=== PATIENT | male | born 1945 | race Caucasian/White ===

== ENCOUNTER → 2023-12-21 07:55 | Outpatient (REF) | payer OTHER, SELFPAY ==
[2023-12-21 08:45] LABS: NT-proBNP 2470 pg/ml
[2023-12-21 09:08] LABS: Blood Urea Nitrogen 31 mg/dl (9-20); Calcium 9.3 mg/dl (8.4-10.2); Carbon Dioxide 30 mmol/L (22-30); Chloride 100 mmol/L (98-107); Glucose 107 mg/dl (70-99); Potassium 4.6 mmol/L (3.5-5.1); Sodium 138 mmol/L (135-145); eGFR 44.38
== END ==
LOC: REG 07:55
PROVIDERS: ATTENDING PHYSICIAN Internal Medicine Cardiovascular Disease; FAMILY PHYSICIAN Family Medicine
DX: I42.9 Cardiomyopathy, unspecified (principal)
CPT/HCPCS: 36415; 80048; 83880

== ENCOUNTER → 2024-01-11 07:17 | Outpatient (REF) | payer OTHER, SELFPAY | LOC: DHCBS MAIN 07:17 | PROVIDERS: ATTENDING PHYSICIAN Internal Medicine Cardiovascular Disease; FAMILY PHYSICIAN Family Medicine | DX: I42.9 Cardiomyopathy, unspecified (principal) | CPT/HCPCS: 93306 ==

== ENCOUNTER → 2024-01-13 10:32 | Outpatient (REF) | payer OTHER, SELFPAY ==
[2024-01-13 11:39] LABS: INR 2.02; PT 23.1 Sec (11.4-14.6)
== END ==
LOC: REG 10:32
PROVIDERS: ATTENDING PHYSICIAN Internal Medicine Cardiovascular Disease; FAMILY PHYSICIAN Family Medicine
DX: I48.0 Paroxysmal atrial fibrillation (principal); I48.19 Other persistent atrial fibrillation
CPT/HCPCS: 36415; 85610

== ENCOUNTER → 2024-02-19 09:58 | Outpatient (REF) | payer OTHER, SELFPAY ==
[2024-02-19 10:45] LABS: INR 2.47; PT 26.7 Sec (11.4-14.6)
== END ==
LOC: REG 09:58
PROVIDERS: ATTENDING PHYSICIAN Internal Medicine Cardiovascular Disease; FAMILY PHYSICIAN Family Medicine
DX: I48.0 Paroxysmal atrial fibrillation (principal); G45.9 Transient cerebral ischemic attack, unspecified; I48.19 Other persistent atrial fibrillation
CPT/HCPCS: 36415; 85610

== ENCOUNTER → 2024-03-25 10:10 | Outpatient (REF) | payer OTHER, SELFPAY ==
[2024-03-25 11:54] LABS: INR 2.44; PT 26.4 Sec (11.4-14.6)
== END ==
LOC: REG 10:10
PROVIDERS: ATTENDING PHYSICIAN Internal Medicine Cardiovascular Disease
DX: I48.0 Paroxysmal atrial fibrillation (principal); G45.9 Transient cerebral ischemic attack, unspecified; I48.19 Other persistent atrial fibrillation
CPT/HCPCS: 36415; 85610

== ENCOUNTER → 2024-05-02 14:25 | Outpatient (REF) | payer OTHER, SELFPAY ==
[2024-05-02 15:40] LABS: INR 3.19; PT 32.6 Sec (11.4-14.6)
== END ==
LOC: REG 14:25
PROVIDERS: ATTENDING PHYSICIAN Internal Medicine Cardiovascular Disease; FAMILY PHYSICIAN Family Medicine
DX: I48.0 Paroxysmal atrial fibrillation (principal); G45.9 Transient cerebral ischemic attack, unspecified; I48.19 Other persistent atrial fibrillation
CPT/HCPCS: 36415; 85610

== ENCOUNTER → 2024-05-17 09:47 | Outpatient (REF) | payer OTHER, SELFPAY ==
[2024-05-17 11:16] LABS: INR 2.91; PT 30.3 Sec (11.4-14.6)
== END ==
LOC: REG 09:47
PROVIDERS: ATTENDING PHYSICIAN Internal Medicine Cardiovascular Disease; FAMILY PHYSICIAN Family Medicine
DX: I48.0 Paroxysmal atrial fibrillation (principal); G45.9 Transient cerebral ischemic attack, unspecified; I48.19 Other persistent atrial fibrillation
CPT/HCPCS: 36415; 85610

== ENCOUNTER → 2024-06-06 09:01 | Outpatient (REF) | payer OTHER, SELFPAY ==
[2024-06-06 10:04] LABS: INR 2.55; PT 27.3 Sec (11.4-14.6)
[2024-06-06 10:19] LABS: ALT (SGPT) 23 U/L (0-50); AST (SGOT) 27 U/L (17-59); Albumin 4.2 g/dl (3.5-5.0); Alkaline Phosphatase 61 U/L (38-126); Blood Urea Nitrogen 31 mg/dl (9-20); Calcium 9.2 mg/dl (8.4-10.2); Carbon Dioxide 30 mmol/L (22-30); Chloride 102 mmol/L (98-107); Glucose 96 mg/dl (70-99); HDL Cholesterol 47 mg/dl; LDL Cholesterol, Calculated 117 mg/dl; Potassium 4.4 mmol/L (3.5-5.1); Sodium 138 mmol/L (135-145); Total Cholesterol 182 mg/dl (50-199); Total Protein 6.6 g/dl (6.3-8.2); Triglyceride 94 mg/dl (10-149); Very Low Density Lipoprotein 18 mg/dl (0-30); eGFR 51.77
== END ==
LOC: REG 09:01
PROVIDERS: ATTENDING PHYSICIAN Internal Medicine Cardiovascular Disease; FAMILY PHYSICIAN Family Medicine
DX: I48.0 Paroxysmal atrial fibrillation (principal); F45.9 Somatoform disorder, unspecified; I48.19 Other persistent atrial fibrillation; E78.2 Mixed hyperlipidemia; R73.01 Impaired fasting glucose
CPT/HCPCS: 36415; 80053; 80061; 85610

== ENCOUNTER → 2024-07-15 12:15 | Outpatient (REF) | payer OTHER, SELFPAY ==
[2024-07-15 13:45] LABS: INR 2.41; PT 26.1 Sec (11.4-14.6)
== END ==
LOC: REG 12:15
PROVIDERS: ATTENDING PHYSICIAN Internal Medicine Cardiovascular Disease; FAMILY PHYSICIAN Family Medicine
DX: I48.0 Paroxysmal atrial fibrillation (principal); Z95.2 Presence of prosthetic heart valve
CPT/HCPCS: 36415; 85610

== ENCOUNTER → 2024-08-18 15:56 | Outpatient (REF) | payer OTHER, SELFPAY ==
[2024-08-18 16:53] LABS: INR 2.13
== END ==
LOC: REG 15:56
PROVIDERS: ATTENDING PHYSICIAN Internal Medicine Cardiovascular Disease; FAMILY PHYSICIAN Family Medicine
DX: I48.0 Paroxysmal atrial fibrillation (principal); Z95.2 Presence of prosthetic heart valve
CPT/HCPCS: 36415; 85610

== ENCOUNTER → 2024-09-19 09:23 | Outpatient (REF) | payer OTHER, SELFPAY ==
[2024-09-19 10:17] LABS: INR 2.29; PT 25.1 Sec (11.4-14.6)
== END ==
LOC: REG 09:23
PROVIDERS: ATTENDING PHYSICIAN Internal Medicine Cardiovascular Disease; FAMILY PHYSICIAN Family Medicine
DX: I48.0 Paroxysmal atrial fibrillation (principal); Z95.2 Presence of prosthetic heart valve
CPT/HCPCS: 36415; 85610

== ENCOUNTER → 2024-10-17 09:19 | Outpatient (REF) | payer OTHER, SELFPAY | LOC: RCS 09:19 | PROVIDERS: ATTENDING PHYSICIAN Internal Medicine Cardiovascular Disease; FAMILY PHYSICIAN Family Medicine | DX: I42.9 Cardiomyopathy, unspecified (principal) | CPT/HCPCS: 93306 ==

== ENCOUNTER → 2024-11-01 11:19 | Outpatient (REF) | payer OTHER, SELFPAY ==
[2024-11-01 12:49] LABS: INR 2.92; PT 30.4 Sec (11.4-14.6)
== END ==
LOC: REG 11:19
PROVIDERS: ATTENDING PHYSICIAN Internal Medicine Cardiovascular Disease; FAMILY PHYSICIAN Family Medicine
DX: Z95.2 Presence of prosthetic heart valve (principal); I48.0 Paroxysmal atrial fibrillation
CPT/HCPCS: 36415; 85610

== ENCOUNTER → 2024-12-02 08:19 | Outpatient (REF) | payer OTHER, SELFPAY ==
[2024-12-02 09:51] LABS: INR 2.32; PT 25.5 Sec (11.4-14.6)
[2024-12-02 10:09] LABS: ALT (SGPT) 20 U/L (0-50); AST (SGOT) 22 U/L (17-59); Albumin 4.1 g/dl (3.5-5.0); Alkaline Phosphatase 52 U/L (38-126); Blood Urea Nitrogen 25 mg/dl (9-20); Calcium 8.8 mg/dl (8.4-10.2); Carbon Dioxide 29 mmol/L (22-30); Chloride 103 mmol/L (98-107); Glucose 90 mg/dl (70-99); HDL Cholesterol 49 mg/dl; LDL Cholesterol, Calculated 111 mg/dl; Potassium 4.6 mmol/L (3.5-5.1); Sodium 138 mmol/L (135-145); Total Bilirubin 1.2 mg/dl (0.2-1.3); Total Cholesterol 181 mg/dl (50-199); Total Protein 6.5 g/dl (6.3-8.2); Triglyceride 109 mg/dl (10-149); Very Low Density Lipoprotein 21 mg/dl (0-30); eGFR 56.58
== END ==
LOC: REG 08:19
PROVIDERS: ATTENDING PHYSICIAN Family Medicine; FAMILY PHYSICIAN Internal Medicine Cardiovascular Disease
DX: Z95.2 Presence of prosthetic heart valve (principal); I48.0 Paroxysmal atrial fibrillation; E78.2 Mixed hyperlipidemia; R73.01 Impaired fasting glucose
CPT/HCPCS: 36415; 80053; 80061; 85610

== ENCOUNTER → 2025-01-11 10:23 | Outpatient (REF) | payer OTHER, SELFPAY ==
[2025-01-11 11:29] LABS: INR 2.09; PT 23.9 Sec (11.4-14.6)
== END ==
LOC: REG 10:23
PROVIDERS: ATTENDING PHYSICIAN Internal Medicine Cardiovascular Disease; FAMILY PHYSICIAN Family Medicine
DX: Z95.2 Presence of prosthetic heart valve (principal); I48.0 Paroxysmal atrial fibrillation
CPT/HCPCS: 36415; 85610

== ENCOUNTER → 2025-02-09 13:18 | Outpatient (REF) | payer OTHER, SELFPAY ==
[2025-02-09 13:56] LABS: INR 2.08; PT 23.8 Sec (11.4-14.6)
== END ==
LOC: REG 13:18
PROVIDERS: ATTENDING PHYSICIAN Internal Medicine Cardiovascular Disease; FAMILY PHYSICIAN Family Medicine
DX: Z95.2 Presence of prosthetic heart valve (principal); I48.0 Paroxysmal atrial fibrillation
CPT/HCPCS: 36415; 85610

== ENCOUNTER → 2025-03-02 10:13 | Outpatient (REF) | payer OTHER, SELFPAY ==
[2025-03-02 11:24] LABS: INR 2.09
== END ==
LOC: REG 10:13
PROVIDERS: ATTENDING PHYSICIAN Internal Medicine Cardiovascular Disease; FAMILY PHYSICIAN Family Medicine
DX: Z95.2 Presence of prosthetic heart valve (principal); I48.0 Paroxysmal atrial fibrillation
CPT/HCPCS: 36415; 85610

== ENCOUNTER → 2025-03-31 10:58 | Outpatient (REF) | payer OTHER, SELFPAY ==
[2025-03-31 11:36] LABS: INR 1.52; PT 18.6 Sec (11.4-14.6)
== END ==
LOC: REG 10:58
PROVIDERS: ATTENDING PHYSICIAN Internal Medicine Cardiovascular Disease; FAMILY PHYSICIAN Family Medicine
DX: Z95.2 Presence of prosthetic heart valve (principal); I48.0 Paroxysmal atrial fibrillation
CPT/HCPCS: 36415; 85610

== ENCOUNTER → 2025-04-07 11:20 | Outpatient (REF) | payer OTHER, SELFPAY ==
[2025-04-07 12:08] LABS: PT 27.1 Sec (11.4-14.6)
== END ==
LOC: REG 11:20
PROVIDERS: ATTENDING PHYSICIAN Internal Medicine Cardiovascular Disease; FAMILY PHYSICIAN Family Medicine
DX: Z95.2 Presence of prosthetic heart valve (principal); I48.0 Paroxysmal atrial fibrillation
CPT/HCPCS: 36415; 85610

== ENCOUNTER → 2025-05-01 11:15 | Outpatient (REF) | payer OTHER, SELFPAY ==
[2025-05-01 12:58] LABS: INR 3.16; PT 32.3 Sec (11.4-14.6)
== END ==
LOC: REG 11:15
PROVIDERS: ATTENDING PHYSICIAN Internal Medicine Cardiovascular Disease
DX: Z95.2 Presence of prosthetic heart valve (principal); I48.0 Paroxysmal atrial fibrillation
CPT/HCPCS: 36415; 85610

== ENCOUNTER → 2025-06-01 13:09 | Outpatient (REF) | payer OTHER, SELFPAY ==
[2025-06-01 14:24] LABS: INR 2.64; PT 28.6 Sec (11.4-14.6)
== END ==
LOC: REG 13:09
PROVIDERS: ATTENDING PHYSICIAN Internal Medicine Cardiovascular Disease
DX: Z95.2 Presence of prosthetic heart valve (principal); I48.0 Paroxysmal atrial fibrillation
CPT/HCPCS: 36415; 85610

== ENCOUNTER → 2025-06-12 08:18 | Outpatient (REF) | payer OTHER, SELFPAY ==
[2025-06-12 10:15] LABS: ALT (SGPT) 18 U/L (0-50); AST (SGOT) 20 U/L (17-59); Albumin 4.0 g/dl (3.5-5.0); Alkaline Phosphatase 47 U/L (38-126); Blood Urea Nitrogen 30 mg/dl (9-20); Calcium 9.0 mg/dl (8.4-10.2); Carbon Dioxide 28 mmol/L (22-30); Chloride 106 mmol/L (98-107); Glucose 98 mg/dl (70-99); HDL Cholesterol 42 mg/dl; LDL Cholesterol, Calculated 92 mg/dl; Potassium 4.6 mmol/L (3.5-5.1); Sodium 139 mmol/L (135-145); Total Protein 6.4 g/dl (6.3-8.2); Very Low Density Lipoprotein 16 mg/dl (0-30); eGFR 56.23
== END ==
LOC: REG 08:18
PROVIDERS: ATTENDING PHYSICIAN Family Medicine
DX: I50.22 Chronic systolic (congestive) heart failure (principal); N18.31 Chronic kidney disease, stage 3a
CPT/HCPCS: 36415; 80053; 80061

== ENCOUNTER → 2025-07-10 10:07 | Outpatient (REF) | payer OTHER, SELFPAY ==
[2025-07-10 11:06] LABS: INR 2.41; PT 26.3 Sec (11.4-14.6)
== END ==
LOC: REG 10:07
PROVIDERS: ATTENDING PHYSICIAN Internal Medicine Cardiovascular Disease
DX: Z95.2 Presence of prosthetic heart valve (principal); I48.0 Paroxysmal atrial fibrillation
CPT/HCPCS: 36415; 85610

== ENCOUNTER → 2025-08-17 15:27 | Outpatient (REF) | payer OTHER, SELFPAY ==
[2025-08-17 16:22] LABS: INR 3.26; PT 33.5 Sec (11.4-14.6)
== END ==
LOC: REG 15:27
PROVIDERS: ATTENDING PHYSICIAN Internal Medicine Cardiovascular Disease; FAMILY PHYSICIAN Family Medicine
DX: Z95.2 Presence of prosthetic heart valve (principal); Z79.01 Long term (current) use of anticoagulants
CPT/HCPCS: 36415; 85610

== ENCOUNTER → 2025-09-04 09:50 | Outpatient (REF) | payer OTHER, SELFPAY ==
[2025-09-04 11:20] LABS: INR 2.52; PT 27.2 Sec (11.4-14.6)
== END ==
LOC: REG 09:50
PROVIDERS: ATTENDING PHYSICIAN Internal Medicine Cardiovascular Disease; FAMILY PHYSICIAN Family Medicine
DX: Z95.2 Presence of prosthetic heart valve (principal); Z79.01 Long term (current) use of anticoagulants
CPT/HCPCS: 36415; 85610

== ENCOUNTER → 2025-09-26 09:59 | Outpatient (REF) | payer OTHER, SELFPAY ==
[2025-09-26 11:37] LABS: Hematocrit 46.4 % (39.0-52.0); Hemoglobin 15.3 g/dL (13.0-18.0); Mean Corp Hgb Conc. 33.0 g/dL (33.0-37.0); Mean Corpuscular Volume 92.8 fL (80.0-94.0); Nucleated Red Blood Cells % 0 % (-); Platelet Count 205 10^3/uL (130-400); Red Cell Dist. Width 13.1 % (11.5-14.5)
== END ==
LOC: RAD 09:59
PROVIDERS: ATTENDING PHYSICIAN Family Medicine
DX: R59.0 Localized enlarged lymph nodes (principal)
CPT/HCPCS: 36415; 71046; 76882; 85025

== ENCOUNTER → 2025-10-09 10:46 | Outpatient (REF) | payer OTHER, SELFPAY ==
[2025-10-09 11:58] LABS: INR 3.17; PT 32.4 Sec (11.4-14.6)
== END ==
LOC: REG 10:46
PROVIDERS: ATTENDING PHYSICIAN Internal Medicine Cardiovascular Disease
DX: Z95.2 Presence of prosthetic heart valve (principal); I48.0 Paroxysmal atrial fibrillation
CPT/HCPCS: 36415; 85610

== ENCOUNTER → 2025-10-10 12:37 | Outpatient (REF) | payer OTHER, SELFPAY ==
[2025-10-10 12:55] VITALS: BP 152/67; BP_SYST 73
[2025-10-10 13:22] LABS: INR 3.21; PT 32.6 Sec (11.4-14.6)
--- NOTE | 2025-10-10 14:37 | PTCARENOTE ---
[facility] note: INR 3.21, too high for procedure. Dr. Baeza talked to patient at bedside. 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 per patient, Dr. Lombardi wants Dr. Baeza to reached out to him regarding how long Coumadin to hold. Dr. Baeza
notified.
== END ==
LOC: RADI 12:37
PROVIDERS: Radiology Vascular & Interventional Radiology; ATTENDING PHYSICIAN Family Medicine
DX: R59.0 Localized enlarged lymph nodes (principal); Z53.8 Procedure and treatment not carried out for other reasons
CPT/HCPCS: 85610

== ENCOUNTER → 2025-10-19 08:59 | Outpatient (REF) | payer OTHER, SELFPAY ==
[2025-10-19 09:28] VITALS: BP 150/73; BP_SYST 73
[2025-10-19 09:37] LABS: INR 2.27; PT 24.7 Sec (11.4-14.6)
== END ==
LOC: RADI 08:59
PROVIDERS: ATTENDING PHYSICIAN Family Medicine
DX: R59.0 Localized enlarged lymph nodes (principal)
CPT/HCPCS: 20206; 36415; 38505; 76942; 85610; 88305; 88333; 88341; 88342

== ENCOUNTER → 2025-11-10 08:09 | Outpatient (REF) | payer OTHER, SELFPAY ==
[2025-11-10 09:19] LABS: INR 1.37; PT 17.0 Sec (11.4-14.6)
== END ==
LOC: REG 08:09
PROVIDERS: ATTENDING PHYSICIAN Internal Medicine Cardiovascular Disease; FAMILY PHYSICIAN Family Medicine
DX: Z95.2 Presence of prosthetic heart valve (principal); Z79.01 Long term (current) use of anticoagulants
CPT/HCPCS: 36415; 85610